=== PATIENT | female | born 1970 | race Hispanic/Latino ===

== ENCOUNTER → 2023-12-05 | Day surgery (SDC) | payer OTHER ==
[~2023-12-05] MED LIST: FENTANYL CITRATE/PF 100MCG/2 ML INJ ONE; HYOSCYAMINE SULFATE 0.5 MG/ML INJ ONE; LIDOCAINE HCL 2% LOCAL INJ 5 ML SDV VIAL INJ ONE; PROPOFOL IV EMULSION 10 MG/ML 20 ML VIAL ONE; PROPOFOL IV EMULSION 10 MG/ML 50 ML VIAL IV ONE; VIT D PO; VITMIN D PO
[2023-12-05] MEDS: LACTATED RINGER'S 1,000 ML ONE (11:11)
[2023-12-05 12:39] VITALS: TEMP 97.3
[2023-12-05 13:25] VITALS: BP 140/85; PULSE 72; RESP 16; O2SAT 97
== END | disposition home or self-care (01) ==
LOC: OR 09:57
PROVIDERS: ATTEND Internal Medicine Gastroenterology
DX: Z12.11 Encounter for screening for malignant neoplasm of colon (principal); K63.5 Polyp of colon; K64.8 Other hemorrhoids; K21.9 Gastro-esophageal reflux disease without esophagitis; Z71.3 Dietary counseling and surveillance; Z01.810 Encounter for preprocedural cardiovascular examination; Z68.23 Body mass index [BMI] 23.0-23.9, adult
CPT/HCPCS: 45385; 81025; 93005; J1980; J2001; J2704 ×2; J3010; J7121; 45378